=== PATIENT | male | born 1995 | race Two or more races ===

== ENCOUNTER 2017-01-27 13:03 | Emergency (ER) | payer OTHER ==
--- NOTE | 2017-01-27 14:30 | ER Document Report ---
HPI - HPI Pain Level: 4 Context: Patient comes to the office complaining of sore throat for the last 3 days. The patient also complains of a slight rash to his anterior trunk that began this morning. He is still eating and drinking with no problems. He has not been using any [id number] meds for symptoms. Patient denies any nasal congestion, nasal discharge, sinus pain, ear pain, dysphagia, cough, shortness of breath, chest pain, palpitations, abdominal pain, N/V/D/C, or dysuria. - ROS Notes: REVIEW OF SYSTEMS: CONSTITUTIONAL : Denies fever, chills, or sweats. Denies recent illness. EENT: as above. CARDIOVASCULAR: Denies chest pain. Denies palpitations or racing or irregular heart beat. Denies ankle edema. RESPIRATORY: Denies cough, cold, or chest congestion. Denies shortness of breath, difficulty breathing, or wheezing. GASTROINTESTINAL: Denies abdominal pain or distention. Denies nausea, vomiting , or diarrhea. Denies blood in vomitus, stools, or per rectum. Denies black, tarry stools. Denies constipation. GENITOURINARY: Denies difficulty urinating, painful urination, burning, frequency, blood in urine, or discharge. MUSCULOSKELETAL: Denies back or neck pain or stiffness. Denies joint pain or swelling. SKIN: as above. HEMATOLOGIC : Denies easy bruising or bleeding. LYMPHATIC: Denies swollen, enlarged glands. NEUROLOGICAL: Denies confusion or altered mental status. Denies passing out or loss of consciousness. Denies dizziness or lightheadedness. Denies headache. Denies weakness or paralysis or loss of use of either side. Denies problems with gait or speech. Denies sensory loss, numbness, or tingling. Denies seizures. PSYCHIATRIC: Denies anxiety or stress. Denies depression, suicidal ideation, or homicidal ideation. ALL OTHER SYSTEMS REVIEWED AND NEGATIVE. Dictation was performed using [employer] voice recognition software - DERM Skin Color: Normal Past Medical History - Social History Smoking Status: Current Every Day Smoker - 1/2 PPD Smoking Education Provided: Yes - 2mins Family History: Reviewed & Not Pertinent Patient has suicidal ideation: No Patient has homicidal ideation: No Renal/ Medical History: Denies: Hx Peritoneal Dialysis Vertical Provider Document - CONSTITUTIONAL Notes: PHYSICAL EXAMINATION: GENERAL: Well-appearing, well-nourished and in no acute distress. HEAD: Atraumatic, normocephalic. EYES: Pupils equal round and reactive to light, extraocular movements intact, sclera anicteric, conjunctiva are normal. ENT: EAC have cerumen b/l obstructing view of TM. Nares patent and without discharge. oropharynx erythemic without exudates. + tonsilar erythema withouth hypertrophy. Moist mucous membranes. No sinus tenderness. NECK: Normal range of motion, supple without lymphadenopathy LUNGS: Breath sounds clear to auscultation bilaterally and equal. No wheezes rales or rhonchi. HEART: Regular rate and rhythm without murmurs, rubs, gallops. ABDOMEN: Soft, nontender, nondistended abdomen. No guarding, no rebound. No masses appreciated. Normal bowel sounds present. No CVA tenderness bilaterally. Musculoskeletal: FROM to passive/active. Strength 5+/5. Extremities: No cyanosis, clubbing, or edema b/l. Peripheral pulses 2+. Capillary refill less than 3 seconds. NEUROLOGICAL: Cranial nerves grossly intact. Normal speech, normal gait. Normal sensory, motor exams PSYCH: Normal mood, normal affect. SKIN: Warm, Dry, normal turgor, very fine erythemic maculopapule appearing rash to the trunk. - INFECTION CONTROL TRAVEL OUTSIDE OF THE [place] IN LAST 30 DAYS: No - RESPIRATORY O2 Sat by Pulse Oximetry: 98 Course - Re-evaluation Re-evalutation: Patient presents with acute pharyngitis suspect viral at this time based on H& P. I suspect that the faint rash is from his viral infection. Rapid strep was negative. Vitals are stable, PE otherwise unremarkable. No other red flag symptoms. If he notices any trouble swallowing trouble, trouble breathing, fever, worsening pain, abdominal pain, chest pain to return to the ED. Otherwise follow-up with PCM in 2-3 days for recheck. Patient in agreement. 01/27/17 15:27 - Vital Signs Vital signs: Temp Pulse Resp BP Pulse Ox 98.0 F 54 L 16 119/73 98 01/27/17 13:18 01/27/17 13:18 01/27/17 13:18 01/27/17 13:18 01/27/17 13:18 Discharge - Discharge Clinical Impression: Sore throat, Rash and nonspecific skin eruption Condition: Stable Disposition: HOME, SELF-CARE Instructions: Sore Throat ([facility]) Additional Instructions: At this time your rapid strep was negative indicating probable viral infection. You may use Tylenol and ibuprofen as needed for discomfort along with saltwater gargles, throat sprays, tea with honey. Maintain fluid intake. Monitor symptoms for any worsening pain, trouble swallowing, fever, neck pain, abdominal pain. Return to the ED with any worsening symptoms as above and follow-up with your PCM in 2-3 days. Forms: Smoking Cessation Education
[2017-01-27 15:36] VITALS: BP 117/65
== END 2017-01-27 15:37 | disposition home or self-care (01) ==
LOC: ER 13:03
DX: J02.9 Acute pharyngitis, unspecified (principal); R21 Rash and other nonspecific skin eruption; F17.210 Nicotine dependence, cigarettes, uncomplicated
CPT/HCPCS: 87070; 87880; 99283